=== PATIENT | male | born 1985 | race Caucasian/White ===

== ENCOUNTER 2017-03-08 20:10 | Emergency (ER) | payer OTHER ==
[~2017-03-08] VITALS: Ht 175.3 cm; Wt 81.8 kg
[2017-03-08 20:48] VITALS: BP 151/81; PULSE 104; RESP 18; O2SAT 97
[2017-03-08 22:30] VITALS: BP 142/90; PULSE 100; O2SAT 98
--- NOTE | 2017-03-08 22:32 | ED.REPORT ---
HPI-General Illness Date of Service Mar 08, 2017 ED Provider: Cristian Davis MD Pt is a 31 y/o male with a history of alcohol abuse and alcohol-related seizures who presents to the ED for alcohol detox. He states that he went 160 days without a drink, but 8 days ago, he relapsed and has been drinking every day since then. He reports that he usually drinks 12-15 beers a day, and his last drink was at 1945 today. Pt already called [facility] and is here requesting a taper. Additional symptoms include nausea and anxiety. He denies LOC, headache, vomiting, diarrhea, or any other symptoms. Nursing Notes Stated Complaint: DETOX MEDS Chief Complaint: Substance Abuse Nursing Notes Reviewed: Yes Allergies: Coded Allergies: Penicillins (Verified Allergy, Unknown, 03/08/17) bee venom protein (honey bee) (Verified Allergy, Unknown, 03/08/17) Scheduled PRN Ondansetron ODT (Ondansetron ODT) 8 Mg Tab.rapdis 8 MG PO QID PRN PRN For Nausea General Time Seen by MD: 22:31 Chief Complaint Other (EtOH detox) Hx Obtained From: Patient Arrived By: Walk-in Sudden in Onset?: No Onset Occurred: More than a week ago... (8 days) Context of Onset: EtOH use Severity: Current: Mild Severity: Maximum: Mild Associated with: Reports: Nausea Additional Notes: anxiety Pertinent Negative: Pt denies other symptoms Recent Healthcare: No recent doctor visit, No recent hospitalization Similar Sx Previous: Yes Past Medical History Past Medical History Notes: only has seizures with alcohol 06/12/2016 Past Medical History Alcohol abuse w/ alcoholic seizures Past Surgical History Ear and nose Smoking History Current Every Day Smoker Social History Alcohol Use: >5 per day Drug Use: Denies drug use Occupation lives with Mom, no work or school 06/12/2016 Ambulatory Status Independent Review of Systems EtOH abuse Full Review of Systems GI: Reports: Nausea, Denies: Diarrhea, Vomiting Neurologic: Denies: Change LOC, Headache Psychiatric: Reports: Anxiety Complete sys rev & neg: except as marked. Physical Exam Vital Signs Vital Signs Date Time Temp Pulse Resp B/P Pulse Ox O2 Delivery O2 Flow Rate FiO2 03/09/17 00:44 85 138/81 98 Room Air 03/08/17 22:30 100 142/90 98 Room Air 03/08/17 20:48 36.9 104 18 151/81 97 Room Air Initial VS: Reviewed Head / Eyes: Atraumatic, PERRL Neck: Supple, Full range of motion Abdomen / GI: Soft, Non-tender Extremities: Vascular intact, Neuro intact, No swelling, No tenderness Skin: Warm, Dry, No cyanosis Neurologic: Alert, Oriented, Nonfocal Psychiatric: Mood/affect normal, Behavior normal, Normal thought content General/Constitutional: Awake, Alert Respiratory / Chest: Atraumatic, Breath sounds NL, Breath sounds = bilat, No respiratory distress Cardiovascular: Heart rate NL, Regular rhythm, Heart sounds NL Interpretation & Diagnostics Lab Results Interpretation Test 03/08/17 21:33 Hold Urine Received (Received) Re-Eval/Medical Decision Med Decision/Clinical Course 31-year-old with alcoholism, fairly prolonged period of sobriety, and an eight-day relapse. He is relatively low risk for withdrawal seizures but has that history in the past. Provided with lorazepam taper per protocol and crisis and crisis bed arranged for this morning. Transported via cab in stable condition. Source of Hx: Old records Time of Eval: 02:22 Patient Status: Condition improved Re-Evaluation/Progress Note: Patient rechecked. Discussed plan for discharge to [facility]. Patient understands and agrees with plan. F/U instructions and RTER warnings given. All questions addressed at this time. Counseled Regarding: Diagnosis, Lab results, Need for follow-up, When/why to return to ED Discharge & Departure Primary Impression: Alcohol withdrawal Complication of substance-induced condition: with unspecified complication Qualified Code: F10.239 - Alcohol dependence with withdrawal, unspecified Additional Impression: Alcohol abuse Disposition: Home Discharge Condition All VS Reviewed: Yes Condition: Stable Patient Instructions: Alcohol Withdrawal (ED) Additional Instructions: Take medications as directed by crisis staff. Good luck in your return to sobriety. Referrals: Kuldip Bob MD (PCP) Scribe Attestation Portions of this note were transcribed by Marisol Capellan. I, Dr. Davis, personally performed the history, physical exam and medical decision-making; I reviewed and confirmed the accuracy of the information in the transcribed note. copies to: Kuldip Bob MD, Christopher W MD Mar 08, 2017 22:32 Marisol Capellan Mar 08, 2017 22:39
[2017-03-08] MEDS ORDERED: _LORazepam 2 MG Tablet PO SCH (22:40)
[2017-03-08] MEDS ORDERED: Ondansetron 8 mg ODT Tablet PO ONE (22:40)
[2017-03-08] MEDS ORDERED: LORazepam 2 mg Tablet PO ONE (22:40)
[2017-03-08] MEDS ORDERED: _Ondansetron ODT 4 mg Tablet PO PRN (22:40)
[2017-03-09 00:44] VITALS: BP 138/81; PULSE 85; O2SAT 98
[2017-03-09] MEDS ORDERED: ONDA8TAB10 PO (00:49)
== END 2017-03-09 01:01 | disposition home or self-care (01) ==
LOC: SED 20:10
DX: F10.239 Alcohol dependence with withdrawal, unspecified (principal); R11.0 Nausea; F41.9 Anxiety disorder, unspecified; F17.200 Nicotine dependence, unspecified, uncomplicated; Z88.0 Allergy status to penicillin; Z91.030 Bee allergy status